=== PATIENT | male | born 1990 | race Two or more races ===

== ENCOUNTER → 2021-04-08 | Outpatient (CLI) | payer OTHER ==
--- NOTE | 2021-04-08 13:55 | PFTRPT ---
Height: 69.00 Inches Weight: 160.00 Lbs BSA: 1.88 Diagnosis: PALPITATIONS DATE: 04/08/2021 ORDERING PHYSICIAN: Bud Cornejo Pre and post bronchodilator studies have excellent technical quality. Forced vital capacity is normal. FEV1 is in proportion, obstructive index is therefore normal. Expiratory limit of the flow-volume loop is normal. No significant bronchodilator response is identified. Total lung capacity is normal. Residual volume is in proportion. Diffusing capacity is normal. No hemoglobin available for correction. Airway resistance and conductance are normal. IMPRESSION: Normal study. MTDD
== END ==
LOC: M CARPUL 13:00
PROVIDERS: ATTEND Physician Assistant
DX: R00.2 Palpitations (principal)

== ENCOUNTER → 2021-04-15 | Outpatient (CLI) | payer OTHER ==
[~2021-04-15] MED LIST: METHACHOLINE KIT (J7674) INH ONE
--- NOTE | 2021-04-15 13:49 | PFTRPT ---
Site: [facility], [address] [place], [address] ID: [id number] Name: SHABNAM RECIO Visit Date: 04/15/2021 Second ID: [id number] Referring Doctor: ABBY EL Reviewing Doctor: Hemal Kemp MD [employer] Helper: Emmanuel VILLALOBOS RRT Age: 30 : 1990 Sex: Male Race: <Unspecified> Height: 69.00 Inches Weight: 160.00 Lbs BSA: 1.88 Order IDs: [id number] Requested Test(s): <RESP-PFT.METH CHAL> Diagnosis: PALPITATIONS of albuterol for post bronchodilator. Review Status: Not Reviewed Pre-Bronch Post-Bronch Pred Actual %Pred Actual %Chng SPIROMETRY FVC (L) 5.32 5.05 94 5.16 2 FEV1 (L) 4.35 4.18 96 4.10 -1 FEV1/FVC (%) 82 83 100 80 -3 FEF 25% (L/sec) 7.88 8.31 105 7.66 -7 FEF 50% (L/sec) 5.36 5.10 95 4.97 -2 FEF 75% (L/sec) 2.05 1.93 94 1.79 -7 FEF 25-75% (L/sec) 4.40 4.26 96 3.98 -6 FEF Max (L/sec) 10.03 9.76 97 9.02 -7 FIVC (L) 5.00 5.07 1 FIF 50% (L/sec) 5.51 4.22 76 6.75 60 FIF Max (L/sec) 4.58 6.82 48 Expiratory Time (sec) 6.23 5.99 -3 Back Extrap Vol (L) 0.13 0.15 11 Time To FEFmax (sec) 0.080 0.086 7
== END ==
LOC: M CARPUL 13:02
PROVIDERS: ATTEND Physician Assistant
DX: R00.2 Palpitations (principal)
CPT/HCPCS: 94070; J7674

== ENCOUNTER → 2021-06-22 | Outpatient (REF) | LOC: M LABSMTC 09:30 | PROVIDERS: ATTEND Pediatrics | DX: Z20.822 Contact with and (suspected) exposure to COVID-19 (principal) ==

== ENCOUNTER 2022-02-12 12:05 | Emergency (ER) | payer OTHER ==
[~2022-02-12] VITALS: Ht 175.3 cm; Wt 76.0 kg
[2022-02-12] MEDS ORDERED: NS 500 ML IV ONE (12:40)
[2022-02-12] MEDS ORDERED: PROPAFENONE 150 MG TAB PO STA (13:20)
[2022-02-12] MEDS ORDERED: METOPROLOL SUCC (TopROL XL) 50MG **XL** TAB PO STA (13:20)
[2022-02-12 13:28] LABS: BASO # 0.1 10^3/uL (0.0-0.2); BASO % 0.7 % (0.0-1.0); EOS # 0.6 10^3/uL (0.0-0.5); EOS % 6.1 % (0.0-3.0); HEMATOCRIT 47.7 % (42.0-52.0); HEMOGLOBIN 16.4 g/dl (13.5-17.5); LYMPH % 19.7 % (24.0-44.0); MEAN CORPUSCULAR HEMOGLOBIN 29.1 pg (27.0-33.0); MEAN CORPUSCULAR HGB CONC 34.4 g/dl (32.0-36.5); MEAN CORPUSCULAR VOLUME 84.6 fl (80.0-96.0); MONO # 0.5 10^3/uL (0.0-0.8); MONO % 4.5 % (2.0-8.0); NEUTROPHILS # 7.1 10^3/uL (1.5-8.5); NEUTROPHILS % 68.7 % (36.0-66.0); PLATELET COUNT, AUTOMATED 223 10^3/uL (150-450); RED BLOOD COUNT 5.64 10^6/uL (4.30-6.10); WHITE BLOOD COUNT 10.3 10^3/uL (4.0-10.0)
[2022-02-12 13:29] VITALS: BP 155/78
[2022-02-12 14:07] LABS: CK-MB VALUE MASS < 1.0 NG/ML (<3.6); CPK CREATINE PHOSPHOKINASE 83 U/L (39-308)
[2022-02-12 14:13] LABS: ALBUMIN 4.5 GM/DL (3.2-5.2); ALT/SGPT 59 U/L (12-78); BILIRUBIN,DIRECT 0.2 MG/DL (0.0-0.2); BILIRUBIN,TOTAL 0.6 MG/DL (0.2-1.0); BLOOD UREA NITROGEN 15 MG/DL (7-18); CALCIUM LEVEL 10.1 MG/DL (8.5-10.1); CARBON DIOXIDE LEVEL 27 MEQ/L (21-32); CHLORIDE LEVEL 103 MEQ/L (98-107); CREATININE FOR GFR 0.96 MG/DL (0.70-1.30); FREE T4 1.21 NG/DL (0.76-1.46); GLOMERULAR FILTRATION RATE > 60.0 (>60); GLUCOSE, FASTING 91 MG/DL (70-100); LIPASE 114 U/L (73-393); MAGNESIUM LEVEL 2.1 MG/DL (1.8-2.4); NT-PRO BNP 12 PG/ML (<125); POTASSIUM SERUM 3.8 MEQ/L (3.5-5.1); SODIUM LEVEL 136 MEQ/L (136-145); TOTAL PROTEIN 7.9 GM/DL (6.4-8.2)
[2022-02-12] MEDS ORDERED: PROP150T PO ×2 (15:00→15:38)
[2022-02-12] MEDS ORDERED: METO1TAB7 PO ×2 (15:00→15:38)
[2022-02-12 15:41] VITALS: BP 148/73
== END 2022-02-12 15:46 | disposition home or self-care (01) ==
LOC: EDBD 12:05 → M ED 12:05
DX: I49.3 Ventricular premature depolarization (principal); I47.9 Paroxysmal tachycardia, unspecified